=== PATIENT | male | born 1970 | race American Indian/Alaskan Native ===

== ENCOUNTER 2018-08-15 04:25 | Emergency (ER) | payer OTHER ==
--- NOTE | 2018-08-15 08:04 | Emergency Department Report ---
Suture/Staple Removal - [facility] Chief Complaint: Laceration/Recheck/Suture Time Seen by Provider: 08/15/18 07:49 When Sutures or [place] Placed: 5-7 Days Ago Wound Location: scalp ED Review of Systems ROS: Stated complaint: Other details as noted in HPI Comment: All other systems reviewed and negative ED Past Medical Hx - Past Medical History Previous Medical History?: No - Surgical History Past Surgical History?: No - Social History Smoking Status: Never Smoker Suture Removal Exam - Exam General: Vital signs noted. No distress. Alert and acting appropriately. Wound: Yes Wound Dehiscence, No Pathologic Erythema, No Tenderness, No Drainage, No Pus Other Systems: All other systems reviewed and are unremarkable. ED Course Vital Signs 08/15/18 04:25 Temperature 98.1 F Pulse Rate 78 Respiratory 18 Rate Blood Pressure 169/96 O2 Sat by Pulse 98 Oximetry ED Recheck MDM - Medical Decision Making 48-year-old male presents with a staple remover. Damian removed with no problems. 13 damian removed. Patient tolerated well. Discussed follow-up with primary care physician. Vital signs are normal. he is in no acute distress he understands instructions Critical care attestation.: If time is entered above; I have spent that time in minutes in the direct care of this critically ill patient, excluding procedure time. ED Disposition Clinical Impression: Encounter for staple removal Disposition: DC-01 TO HOME OR SELFCARE Is pt being admited?: No Does the pt Need Aspirin: No Condition: Stable Instructions: Acute Wound Care (ED) Additional Instructions: Make sure to follow up with the primary care physician as discussed. Take all your medications as you've been prescribed. If you have any worsening symptoms or develop new symptoms please return to ED immediately. Referrals: PRIMARY CARE, [Primary Care Provider] - 3-5 Days Forms: Work/School Release Form(ED) Time of Disposition: 08:03
== END 2018-08-15 08:11 | disposition home or self-care (01) ==
LOC: ED 04:25